=== PATIENT | male | born 1955 | race Caucasian/White ===

== ENCOUNTER 2017-08-29 12:49 | Outpatient (CLI) | payer OTHER ==
--- NOTE | 2017-08-29 13:30 | RAD ---
PA AND LATERAL CHEST: History: Cough. FINDINGS: The heart size is normal. There is evidence of old granulomatous disease. The lungs are expanded with out focal areas of consolidation, pneumothorax, or pleural effusions. No acute osseous abnormalities are seen. IMPRESSION: No radiographic evidence of acute cardiopulmonary process. POS: [facility]
--- NOTE | 2017-08-29 14:42 | RAD ---
SINUSES THREE VIEWS: History: Sinus pain and pressure. FINDINGS: Frontal, ethmoid, sphenoid and maxillary sinuses appear clear. No fluid or mucosal change. IMPRESSION: Unremarkable sinuses. POS: [facility]
== END 2017-08-29 12:50 | disposition home or self-care (01) ==
LOC: RAD 12:49
PROVIDERS: ATTEND Family Medicine
DX: J32.9 Chronic sinusitis, unspecified (principal); R05 Cough; J40 Bronchitis, not specified as acute or chronic
CPT/HCPCS: 70220; 71046

== ENCOUNTER 2018-08-19 15:45 | Outpatient (CLI) | payer OTHER ==
--- NOTE | 2018-08-19 17:23 | RAD ---
CERVICAL SPINE FOUR VIEWS: 08/19/2018 HISTORY: Cervical spine pain. COMPARISON: None. FINDINGS: There is mild degenerative change at the atlantoaxial interspace. Cervical vertebral body height and alignment appear normal, with no prevertebral soft tissue swelling seen. Mild multilevel mid cervical spine facet hypertrophy noted, left greater than right, most pro minent at C5-C6. Open-mouth odontoid view demonstrates a normal appearing dens and C1-C2 articulatio n. IMPRESSION: Cervical spine degenerative change, as detailed above. If there are radicular symptoms, MRI is sugge sted. POS: [facility]
--- NOTE | 2018-08-19 17:24 | RAD ---
FRONTAL RADIOGRAPH CHEST: 08/19/2018 HISTORY: Pansinusitis with intermittent congestion. COMPARISON: 08/29/2017 FINDINGS: Calcified lymph nodes are noted in the left hilar region, stable. There is no pneumothorax, pleural fluid, focal consolidation, or alveolar edema. Stable mild elevation of left hemidiaphragm. IMPRESSION: Stable appearance of the chest. No acute findings. POS: [facility]
--- NOTE | 2018-08-19 17:25 | RAD ---
SINUSES THREE VIEWS: HISTORY: Chronic pansinusitis with cough and congestion. COMPARISON: 08/29/2017 FINDINGS: Three views of the sinuses show complete aeration of the frontal, maxillary, ethmoid, and sphenoid si nuses. No evidence of sinus opacification. POS: [facility]
== END 2018-08-19 15:46 | disposition home or self-care (01) ==
LOC: BICRAD 15:45
PROVIDERS: ATTEND Family Medicine
DX: M54.2 Cervicalgia (principal); J32.4 Chronic pansinusitis; M47.812 Spondylosis without myelopathy or radiculopathy, cervical region
CPT/HCPCS: 70220; 71045; 72040

== ENCOUNTER 2021-06-22 07:40 | Emergency (ER) | payer OTHER ==
[2021-06-22 08:30] LABS: #Eosinphils 0.1 thou/uL (0.0-0.7); #Lymphocytes 0.6 thou/uL (1.20-3.40); #Monocytes 0.2 thou/uL (0.11-0.59); #Neutrophils 2.7 thou/uL (1.40-6.50); %Basophils 0.1 % (0.0-1.0); %Eosinophils 2.2 % (0.0-10.0); %Lymphocytes 17.9 % (21.0-51.0); %Monocytes 4.9 % (0.0-10.0); %Neutrophils 74.9 % (42.0-75.0); Hemoglobin 15.3 g/dL (14.0-18.0); Mean Corpuscular HGB CONC 33.4 g/dL (32.0-36.0); Mean Corpuscular Hemoglobin 32.9 pg (27.0-31.0); Mean Corpuscular Volume 98.4 fL (78.0-98.0); Mean Platelet Volume 7.3 fL (7.4-10.4); Platelet Count 170 thou/uL (130-400); RBC Distribution Width 11.1 % (11.5-14.5); Red Blood Cell (RBC) Count 4.66 mill/uL (4.70-6.10); White Blood Cell (WBC) Count 3.6 thou/uL (4.8-10.8)
[2021-06-22 08:40] LABS: ALT (SGPT) 14 U/L (8-55); AST (SGOT) 13 U/L (5-34); Albumin 3.6 g/dL (3.4-4.8); Alkaline Phosphatase 50 U/L (40-110); Anion Gap 11 mmol/L (10-20); BUN (Urea Nitrogen) 11 mg/dL (8.4-25.7); Bilirubin, Total 0.6 mg/dL (0.2-1.2); Calc. Creatinine Clearance 0 mL/min (70-130); Calcium 8.6 mg/dL (7.8-10.44); Carbon Dioxide 22 mmol/L (23-31); Chloride 105 mmol/L (98-107); Globulin 3.1 g/dL (2.4-3.5); Glucose 138 mg/dL (80-115); Potassium 3.8 mmol/L (3.5-5.1); Protein, Total 6.7 g/dL (5.8-8.1); Sodium 134 mmol/L (136-145)
== END 2021-06-22 09:21 | disposition home or self-care (01) ==
LOC: ERS 07:40
DX: R55 Syncope and collapse (principal)
CPT/HCPCS: 36415; 71045; 80053; 84484; 85025; 93005

== ENCOUNTER 2023-03-06 10:05 | Outpatient (CLI) | payer OTHER | END 2023-03-06 10:06 | disposition home or self-care (01) | LOC: BICULT 10:05 | PROVIDERS: ATTEND Internal Medicine | DX: R10.10 Upper abdominal pain, unspecified (principal) | CPT/HCPCS: 76700 ==

== ENCOUNTER 2024-07-07 07:49 | Outpatient (CLI) | payer OTHER | END 2024-07-07 07:50 | disposition home or self-care (01) | LOC: BICMRI 07:49 | DX: G44.219 Episodic tension-type headache, not intractable (principal); I67.82 Cerebral ischemia | CPT/HCPCS: 70551 ==

== ENCOUNTER 2025-07-02 12:42 | Emergency (ER) | payer OTHER ==
[2025-07-02 13:36] LABS: #Basophils 0.06 10x3/uL (0.0-0.2); #Eosinophils 0.17 10x3/uL (0.0-0.7); #Monocytes 0.26 10x3/uL (0.11-0.59); #Neutrophils 5.09 10x3/uL (1.40-6.50); %Basophils 0.9 % (0.0-1.0); %Eosinophils 2.7 % (0.0-10.0); %Lymphocytes 12.2 % (21.0-51.0); %Monocytes 4.1 % (0.0-10.0); %Neutrophils 79.3 % (42.0-75.0); Hematocrit 47.2 % (42.0-52.0); Hemoglobin 16.3 g/dL (14.0-18.0); Mean Corpuscular Hemoglobin 32.5 pg (27.0-31.0); Mean Corpuscular Volume 94.0 fL (78.0-98.0); Platelet Count 219 10x3/uL (130-400); Red Blood Cell (RBC) Count 5.02 mill/uL (4.70-6.10); White Blood Cell (WBC) Count 6.41 10x3/uL (4.8-10.8)
[2025-07-02 13:52] LABS: ALT (SGPT) 17 U/L (Less than 45); AST (SGOT) 25 U/L (11-34); Albumin 4.0 g/dL (3.1-4.5); Alkaline Phosphatase 54 U/L (40-110); Anion Gap 9 mmol/L (10-20); BUN (Urea Nitrogen) 13 mg/dL (8.4-25.7); Bilirubin, Total 0.4 mg/dL (0.3-1.2); Calc. Creatinine Clearance 0 mL/min (70-130); Calcium 9.3 mg/dL (7.8-10.44); Carbon Dioxide 25 mmol/L (23-31); Chloride 110 mmol/L (98-107); Globulin 3.5 g/dL (2.4-3.5); Glucose 131 mg/dL (80-115); Potassium 4.9 mmol/L (3.5-5.1); Sodium 139 mmol/L (136-145)
[2025-07-02 14:02] LABS: Bacteria/HPF None Seen HPF (None Seen); Glucose, Urine (Dipstick) Normal (Negative); Leukocyte Negative Leu/uL (Negative); Protein, Urine (Dipstick) Negative (Neg-Trace); Specific Gravity, Urine 1.018 (1.002-1.036); WBC/HPF 0-3 HPF (0-3)
== END 2025-07-02 14:47 | disposition home or self-care (01) ==
LOC: ERS 12:42
DX: N13.2 Hydronephrosis with renal and ureteral calculous obstruction (principal); I10 Essential (primary) hypertension; Z55.6 Problems related to health literacy; Z79.899 Other long term (current) drug therapy
CPT/HCPCS: 36415; 74176; 80053; 81001; 85025